=== PATIENT | female | born 1970 | race Caucasian/White ===

== ENCOUNTER → 2017-11-03 | Outpatient (CLI) | payer OTHER ==
--- NOTE | 2017-11-03 14:28 | WWHP ---
[facility] - HISTORY AND PHYSICAL DATE OF DICTATION: 11/03/2017 Please have a copy sent to Dr. Sharma. CHIEF COMPLAINT: The patient is here for her routine gynecologic exam and mammogram. HPI: This is a 47-year-old, G2, P2, with an LMP of 2003. She is status post tubal ligation. She is also status post endometrial ablation in 2003 and has been amenorrheic since then. She has been experiencing hot flashes, which seem to be improving compared to 1 year ago. PAST MEDICAL HISTORY: Hypertrophic parathyroid gland was removed in 2005 and she does have a history of hypercalcemia related to the parathyroid problem. Also history of recurrent kidney stones and osteoporosis. Dr. Sharma is her primary care physician. MEDICATIONS: 1. Alendronate 35 mg weekly. 2. Sodium tablet 35 mg daily. 3. Potassium citrate 1 daily. 4. Claritin p.r.n. 5. Singulair p.r.n. ALLERGIES: PENICILLIN AND NEOSPORIN. PAST SURGICAL HISTORY: Unchanged from the 09/09/2016 H and P. 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 SOCIAL HISTORY: She denies tobacco and drug use and has about 1 to 2 alcohol containing drinks per week. 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 FAMILY HISTORY: Father had renal cancer, diabetes and heart disease. Mother has rheumatoid arthritis. REVIEW OF SYSTEMS: Weight has been stable. She denies cardiac or GI problems. RESPIRATORY: She does have occasional seasonal allergies. PHYSICAL EXAM: Blood pressure 113/76, height 5 feet 1 inch, weight 107 pounds, BMI 20, temperature 98.2, pulse 97. This is a well-developed, well-nourished, white female, who is alert and oriented x3, in no acute distress. HEENT: Within normal limits. NECK: Supple without mass or thyromegaly. Chest and LUNGS: Clear to auscultation. HEART: Regular rate and rhythm. Breasts are without mass or discharge. Axillary exam is negative for adenopathy. Back negative for CVA tenderness. ABDOMEN: Soft, nontender, without palpable masses. Pelvic exam: Normal external genitalia. Cervix and vagina appear normal without significant atrophy. There is no evidence of prolapse. The uterus is mid position nongravid size and nontender. There are no palpable adnexal masses or tenderness. Rectal exam is negative for mass or tenderness and is negative for occult blood. Extremities nontender. IMPRESSION: 1. 47-year-old ashli menopausal female, who has been amenorrheic since her endometrial ablation. 2. Mild vasomotor symptoms which seem to be improving. 3. History of osteoporosis and she is on alendronate. PLAN: 1. Pap smear was deferred since she had a normal one less than 2 years ago. 2. Self breast examination was discussed. 3. Screening mammogram will be done today. 4. Osteoporosis management was discussed. She will follow up with Dr. Sharma regarding her osteoporosis medications. She will also discuss the amounts of calcium that she would like her to take in because of her history of parathyroid disease. 5. She will return in 1 year. MMODL / IJN: [id number] /
--- NOTE | 2017-11-04 09:30 | MM ---
Reason for exam: screening (asymptomatic). Last mammogram was performed 1 year and 2 months ago. Physical Findings: A clinical breast exam by your physician is recommended on an annual basis and results should be correlated with mammographic findings. MG Screening Mammo w CAD Bilateral CC and MLO view(s) were taken. Prior study comparison: September 09, 2016, bilateral MG screening mammo w CAD. August 07, 2015, bilateral MG screening mammo w CAD. The breast tissue is heterogeneously dense. This may lower the sensitivity of mammography. Finding: There are typically benign calcifications in the right breast. No significant changes in finding since September 09, 2016 and August 07, 2015. ASSESSMENT: Benign, BI-RAD 2 RECOMMENDATION: Routine screening mammogram of both breasts in 1 year.
== END | disposition home or self-care (01) ==
LOC: WWCWWP 12:58
PROVIDERS: ATTEND Obstetrics & Gynecology
DX: Z12.31 Encounter for screening mammogram for malignant neoplasm of breast (principal)
CPT/HCPCS: 77067

== ENCOUNTER → 2018-03-29 | Outpatient (CLI) | payer OTHER ==
--- NOTE | 2018-03-29 15:25 | US ---
EXAMINATION TYPE: US thyroid st tissue head/neck DATE OF EXAM: 03/29/2018 COMPARISON: NONE CLINICAL HISTORY: E21.0 Primary Hyperparathyroidism. GLAND SIZE: Right Lobe: 3.9 x 1.3 x 1.2 cm Overall Parenchyma: homogenous Left Lobe: 3.3 x 1.5 x 1.3 cm Overall Parenchyma: homogeneous Isthmus Thickness: 0.3 cm NODULES RIGHT: # of nodules measured on right: 1 1. 0.3 X 0.3 x 0.2 cm hypoechoic solid nodule at the upper, lateral pole with well-defined margins; . This nodule is wider than tall and shows no intranodular vascularity. Prior size: No previous LEFT: # of nodules measured on left: 1 1. 0.5 X 0.5 x 0.4 cm hypoechoic solid nodule at the mid, medial pole with well-defined margins; . This nodule is wider than tall and shows no intranodular vascularity. Prior size: No previous ISTHMUS: # of nodules measured in the isthmus: 0 Bilateral neck scanned, no evidence of lymphadenopathy. IMPRESSION: 1. Solid nodule within the posterior aspect of the mid left thyroid gland could relate to a parathyro id adenoma in the setting of hyperparathyroidism. Correlation with nuclear medicine parathyroid scan could be performed. 2. Incidentally identified 3 mm right thyroid nodule.
== END | disposition home or self-care (01) ==
LOC: RADUSWWP 14:42
PROVIDERS: ATTEND Internal Medicine Endocrinology, Diabetes & Metabolism
DX: E04.1 Nontoxic single thyroid nodule (principal)
CPT/HCPCS: 76536

== ENCOUNTER → 2018-04-14 | Outpatient (CLI) | payer OTHER ==
[2018-04-14 08:56] LABS: Albumin 4.6 g/dL (3.5-5.0); Potassium 5.4 mmol/L (3.5-5.1); Total Bilirubin 0.8 mg/dL (0.2-1.3); Total Protein 7.3 g/dL (6.3-8.2)
[2018-04-14 14:06] LABS: Calcium 24 Hour,Urine 54.4 mg/24 hr
[2018-04-14 16:32] LABS: Parathyroid Hormone Intact 65.6 pg/mL (14.0-72.0)
[2018-04-14 18:14] LABS: Vitamin D 25 Hydroxy 29.2 ng/mL (30.0-100.0)
== END | disposition home or self-care (01) ==
LOC: LABWHC1 08:18
PROVIDERS: ATTEND Internal Medicine Endocrinology, Diabetes & Metabolism
DX: E21.0 Primary hyperparathyroidism (principal); M81.0 Age-related osteoporosis without current pathological fracture
CPT/HCPCS: 36415; 80053; 81050; 82306; 82340; 83970; 84146; 84443

== ENCOUNTER → 2018-08-10 | Outpatient (CLI) | payer OTHER ==
[2018-08-10 19:15] LABS: Albumin 4.6 g/dL (3.80-4.90); Albumin/Globulin Ratio 2.19 (1.20-2.10); Anion Gap 8.6 mmol/L (4.00-12.00); Calcium 9.5 mg/dL (8.7-10.3); Carbon Dioxide 26.4 mmol/L (21.6-31.8); Globulin 2.1 g/dL (2.1-3.7); Potassium 4.8 mmol/L (3.5-5.5); Total Bilirubin 0.7 mg/dL (0.2-1.2); Total Protein 6.7 g/dL (6.2-8.2)
[2018-08-10 22:27] LABS: Parathyroid Hormone Intact 55.9 pg/mL (14.0-72.0)
== END | disposition home or self-care (01) ==
LOC: LABWHC1 08:59
PROVIDERS: ATTEND Internal Medicine Endocrinology, Diabetes & Metabolism
DX: E21.0 Primary hyperparathyroidism (principal); M81.0 Age-related osteoporosis without current pathological fracture
CPT/HCPCS: 36415; 80053; 82306; 83970; 84146; 84443

== ENCOUNTER → 2018-08-17 | Outpatient (CLI) | payer OTHER | LOC: LABWHC1 10:25 | PROVIDERS: ATTEND Internal Medicine Endocrinology, Diabetes & Metabolism | DX: M81.0 Age-related osteoporosis without current pathological fracture (principal) | CPT/HCPCS: 36415; 82523 ==

== ENCOUNTER → 2018-10-20 | Outpatient (CLI) | payer OTHER ==
[~2018-10-20] MED LIST: SODIUM CHLORIDE 0.9% 500 ML 500 ML in EMPTY BAG 1 BAG IV PRN; ZOLEDRONIC ACID 5 MG in SODIUM CHLORIDE 0.9% 100 ML IV NR
[2018-10-20 13:39] VITALS: BP 115/76; PULSE 88; RESP 16; TEMP 97.4
== END ==
LOC: PROCWHC3 13:32
PROVIDERS: ATTEND Internal Medicine Endocrinology, Diabetes & Metabolism
DX: M81.0 Age-related osteoporosis without current pathological fracture (principal)
CPT/HCPCS: 96365; J3489

== ENCOUNTER → 2019-01-12 | Outpatient (CLI) | payer OTHER ==
[2019-01-12 16:40] LABS: Vitamin D 25 Hydroxy 40.4 ng/mL (30.0-100.0)
[2019-01-12 16:43] LABS: Albumin 4.5 g/dL (3.80-4.90); Albumin/Globulin Ratio 2.25 (1.60-3.17); Anion Gap 9.4 mmol/L (4.00-12.00); Calcium 9.8 mg/dL (8.7-10.3); Carbon Dioxide 25.6 mmol/L (21.6-31.8); Potassium 4.8 mmol/L (3.5-5.5); Total Bilirubin 0.8 mg/dL (0.3-1.2); Total Protein 6.5 g/dL (6.2-8.2)
[2019-01-12 17:09] LABS: Parathyroid Hormone Intact 54.4 pg/mL (14.0-72.0)
== END | disposition home or self-care (01) ==
LOC: LABWHC1 09:13
PROVIDERS: ATTEND Internal Medicine Endocrinology, Diabetes & Metabolism
DX: M81.0 Age-related osteoporosis without current pathological fracture (principal); E55.9 Vitamin D deficiency, unspecified; E21.1 Secondary hyperparathyroidism, not elsewhere classified; R53.83 Other fatigue
CPT/HCPCS: 36415; 80053; 82306; 82523; 83970; 84443

== ENCOUNTER → 2020-04-24 | Outpatient (CLI) | payer OTHER ==
[2020-04-24 07:59] VITALS: BP 120/73; PULSE 72; RESP 16; TEMP 98.2
--- NOTE | 2020-04-24 08:47 | P.HPOB ---
History of Present Illness H&P Date: 04/24/20 Chief Complaint: The patient is here for her routine gynecologic exam and ma mmogram. This is a 49-year-old with an LMP of 2003. The patient is complaining of vaginal dryness with sexual intercourse and states [id number] lubricants have not been helpful. She has had hot flashes for years but these seem to be decreasing. She states she was tested with a blood tests that determined she was menopausal in the past. She denies any postmenopausal bleeding and has no other gynecologic complaints. Review of Systems She has lost about 7 pounds over the past 2-1/2 years. She denies respiratory, cardiac, or GI problems. Past Medical History Additional Past Medical History / Comment(s): Hypertrophic parathyroid gland removed in 2005 and history of hypercalcemia related to the parathyroid problem. History of recurrent kidney stones and osteoporosis. History of Any Multi-Drug Resistant Organisms: None Reported Past Surgical History: Tubal Ligation, Uterine Ablation Additional Past Surgical History / Comment(s): Endometrial ablation 2003. Parathyroid removed 2005. Multiple lithotripsies for kidney stones. 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 - Past Family History Father Family Medical History: Cancer, Diabetes Mellitus Additional Family Medical History / Comment(s): Renal cancer. Mother Family Medical History: Rheumatoid Arthritis (RA) Medications and Allergies Home Medications Medication Instructions Recorded Confirmed Type Calcium Carbonate [Calcium] 600 mg PO DAILY 10/20/18 04/24/20 History Cholecalciferol [Vitamin D3 (25 1,000 unit PO DAILY 04/24/20 04/24/20 History Mcg = 1000 Iu)] Montelukast [Singulair] 10 mg PO HS 04/24/20 04/24/20 History Potassium Citrate [Potassium 10 meq PO DAILY 04/24/20 04/24/20 History Citrate ER] Zoledronic Acid [Zometa] 0 mg SQ ONCE 04/24/20 04/24/20 History Allergies Allergy/AdvReac Type Severity Reaction Status Date / Time bacitracin Allergy Anaphylaxis Verified 04/24/20 07:48 [From Neosporin ([id number])] neomycin Allergy Anaphylaxis Verified 04/24/20 07:48 [From Neosporin ([id number])] Penicillins Allergy Anaphylaxis Verified 04/24/20 07:48 polymyxin B Allergy Anaphylaxis Verified 04/24/20 07:48 [From Neosporin ([id number])] Exam Vital Signs Temp Pulse Resp BP Pulse Ox 04/24/20 07:53 98.2 F 72 16 120/73 100 Intake and Output 04/23/20 04/24/20 04/24/20 22:59 06:59 14:59 Other: Weight 45.359 kg Height 5 feet 1 inch, weight 100 pounds, BMI 18.9. This is a well-developed well-nourished white female who is alert and oriented times 3 in no acute distress. HEENT: Within normal limits. NECK: Supple without mass or thyromegaly. CHEST AND LUNGS: Clear to auscultation. HEART: Regular rate and rhythm. BREASTS: Are without mass or discharge. AXILLARY EXAM: Negative for adenopathy. BACK: Negative for CVA tenderness. ABDOMEN: Soft, nontender, without palpable masses. PELVIC EXAM: Normal external genitalia with mild atrophy. Cervix and vagina appear normal mild atrophy. There is no unusual discharge. There is no evidence of prolapse. The uterus is midposition, nongravid size and nontender. There are no palpable adnexal masses or tenderness. RECTAL EXAM: negative for mass or tenderness and is negative for occult blood. EXTREMITIES: Nontender. IMPRESSION: 1. 49-year-old menopausal female with normal gynecologic exam. 2. Dyspareunia secondary to vaginal dryness from atrophy. 3. History of osteoporosis status post Fosamax use and is currently on Zometa. PLAN: 1. Pap smear was performed. 2. Self breast awareness was discussed with the patient. 3. Screening mammogram will be done today. 4. Trial of Premarin vaginal cream. The electronic prescription will be sent to [facility] in [place]. This will be for Premarin vaginal cream 1 g intravaginally 2 times weekly. 5. Osteoporosis management was discussed with the patient. She will follow up with her timekeeper supervisor for this as well as for her parathyroid issues, as she has done in the past. 6. She was advised to return in one year for her annual well woman exam.
--- NOTE | 2020-04-30 12:07 | MM ---
Reason for exam: screening (asymptomatic). Last mammogram was performed 2 years and 6 months ago. Physical Findings: A clinical breast exam by your physician is recommended on an annual basis and results should be correlated with mammographic findings. MG Screening Mammo w CAD Bilateral CC and MLO view(s) were taken. Prior study comparison: November 03, 2017, bilateral MG screening mammo w CAD. September 09, 2016, bilateral MG screening mammo w CAD. The breast tissue is heterogeneously dense. This may lower the sensitivity of mammography. There are benign appearing round calcifications bilaterally. There is no discrete abnormality. ASSESSMENT: Benign, BI-RAD 2 RECOMMENDATION: Routine screening mammogram of both breasts in 1 year.
--- NOTE | 2020-05-01 16:00 | P.PN ---
Progress Note - Text Progress Note Date: 05/01/20 OUTPATIENT FOLLOW-UP NOTE TEST(S)/RESULTS: test results from 04/24/2020 include negative Pap smear and benign mammogram. METHOD OF NOTIFICATION: the patient was notified by phone. PATIENT COMMENTS: the patient is happy to hear these results. The patient states the pharmacy did not have the prescription for Premarin vaginal cream. DIAGNOSIS: negative Pap smear and benign mammogram. DISCUSSION: The prescription for Premarin vaginal cream was resent to [facility] pharmacy in [place]. I have called the pharmacy and they did confirm that they did receive the electronic prescription. PLAN: the patient is to return in one year for her annual well woman exam.
== END | disposition home or self-care (01) ==
LOC: WWCWWP 07:37
PROVIDERS: ATTEND Obstetrics & Gynecology
DX: Z12.31 Encounter for screening mammogram for malignant neoplasm of breast (principal)
CPT/HCPCS: 77067

== ENCOUNTER → 2020-06-08 | Outpatient (CLI) | payer OTHER | END | disposition home or self-care (01) | LOC: RADBDWWP 08:59 | PROVIDERS: ATTEND Internal Medicine Endocrinology, Diabetes & Metabolism | DX: Z53.9 Procedure and treatment not carried out, unspecified reason (principal) ==

== ENCOUNTER → 2021-02-22 | Outpatient (CLI) | payer OTHER ==
[2021-02-23 07:36] LABS: African American GFR (CKD) 68.3 (60.0-200.0); Albumin 4.6 g/dL (3.80-4.90); Albumin/Globulin Ratio 1.7 (1.60-3.17); Anion Gap 13.5 mmol/L (4.00-12.00); BUN/Creat Ratio 14.55 Ratio (12.00-20.00); Calcium 9.6 mg/dL (8.7-10.3); Carbon Dioxide 21.5 mmol/L (21.6-31.8); Globulin 2.7 g/dL (1.6-3.3); Non-African American GFR(CKD) 58.9 (60.0-200.0); Potassium 4.8 mmol/L (3.5-5.5); Total Bilirubin 0.6 mg/dL (0.3-1.2); Total Protein 7.3 g/dL (6.2-8.2)
== END | disposition home or self-care (01) ==
LOC: LABWHC1 10:36
PROVIDERS: ATTEND Internal Medicine Endocrinology, Diabetes & Metabolism
DX: E21.1 Secondary hyperparathyroidism, not elsewhere classified (principal); M81.0 Age-related osteoporosis without current pathological fracture
CPT/HCPCS: 36415; 80053; 83970

== ENCOUNTER → 2021-03-19 | Outpatient (CLI) | payer OTHER ==
[2021-03-19 15:58] LABS: African American GFR (CKD) 76.6 (60.0-200.0); Albumin 4.5 g/dL (3.80-4.90); Albumin/Globulin Ratio 1.73 (1.60-3.17); Anion Gap 4.7 mmol/L (4.00-12.00); Calcium 9.3 mg/dL (8.7-10.3); Carbon Dioxide 27.3 mmol/L (21.6-31.8); Globulin 2.6 g/dL (1.6-3.3); Non-African American GFR(CKD) 66.1 (60.0-200.0); Potassium 4.7 mmol/L (3.5-5.5); Total Bilirubin 0.7 mg/dL (0.2-1.2); Total Protein 7.1 g/dL (6.2-8.2)
== END | disposition home or self-care (01) ==
LOC: LABWHC1 10:04
PROVIDERS: ATTEND Internal Medicine Endocrinology, Diabetes & Metabolism
DX: E21.1 Secondary hyperparathyroidism, not elsewhere classified (principal); M81.0 Age-related osteoporosis without current pathological fracture
CPT/HCPCS: 36415; 80053; 82306; 83970

== ENCOUNTER → 2022-04-21 | Outpatient (CLI) | payer OTHER ==
[2022-04-21 17:49] LABS: African American GFR (CKD) 71.7 (60.0-200.0); Albumin 4.8 g/dL (3.8-4.9); Albumin/Globulin Ratio 1.75 (1.60-3.17); Anion Gap 9.3 mmol/L (10.00-18.00); BUN/Creat Ratio 18.19 Ratio (12.00-20.00); Blood Urea Nitrogen 19.1 mg/dL (9.0-27.0); Calcium 9.8 mg/dL (8.7-10.3); Carbon Dioxide 26.7 mmol/L (20.0-27.5); Globulin 2.7 g/dL (1.6-3.3); Non-African American GFR(CKD) 61.9 (60.0-200.0); Potassium 4.9 mmol/L (3.5-5.5); Total Bilirubin 0.5 mg/dL (0.30-1.20); Total Protein 7.5 g/dL (6.2-8.2)
== END | disposition home or self-care (01) ==
LOC: LABWHC1 11:23
PROVIDERS: ATTEND Internal Medicine Endocrinology, Diabetes & Metabolism
DX: M81.0 Age-related osteoporosis without current pathological fracture (principal)
CPT/HCPCS: 36415; 80053

== ENCOUNTER → 2023-02-17 | Outpatient (CLI) | payer OTHER ==
[2023-02-17 11:14] VITALS: BP 119/79; PULSE 74; RESP 16; TEMP 97.9
--- NOTE | 2023-02-17 12:06 | P.HPOB ---
History of Present Illness H&P Date: 02/17/23 Chief Complaint: The patient is here for her routine gynecologic exam and ma mmogram. This is a 52-year-old with an LMP of 2003. The patient continues to have issues with vaginal dryness with sexual intercourse. She has been using [id number] lubricants without much help. She briefly tried Premarin vaginal cream and she did not feel it helped much so she discontinued it she is interested in trying this again. She is otherwise without gynecologic complaints. Review of Systems The patient has gained 14 pounds over the last 3 years. She denies respiratory, cardiac, or G.I. problems. Past Medical History Additional Past Medical History / Comment(s): Hypertrophic parathyroid gland removed in 2005 and history of hypercalcemia related to the parathyroid problem. History of recurrent kidney stones and osteoporosis(treated by farm equipment mechanic). HEART ABLATION for tachycardia arrhythmia 2019. History of Any Multi-Drug Resistant Organisms: None Reported Past Surgical History: Tubal Ligation, Uterine Ablation Additional Past Surgical History / Comment(s): Endometrial ablation 2003. Parathyroid removed 2005. Multiple lithotripsies for kidney stones. Colonoscopy 2021(next after 10yr). 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 - Past Family History Father Family Medical History: Cancer, Diabetes Mellitus Additional Family Medical History / Comment(s): Renal cancer. Mother Family Medical History: Rheumatoid Arthritis (RA) Medications and Allergies Home Medications Medication Instructions Recorded Confirmed Type Calcium Carbonate [Calcium] 600 mg PO DAILY 10/20/18 02/17/23 History Cholecalciferol [Vitamin D3 (25 1,000 unit PO DAILY 04/24/20 02/17/23 History Mcg = 1000 Iu)] Montelukast [Singulair] 10 mg PO HS 04/24/20 02/17/23 History traZODone HCL [Desyrel] 25 mg PO HS 02/17/23 02/17/23 History Allergies Allergy/AdvReac Type Severity Reaction Status Date / Time bacitracin Allergy Anaphylaxis Verified 02/17/23 11:09 [From Neosporin ([id number])] neomycin Allergy Anaphylaxis Verified 02/17/23 11:09 [From Neosporin ([id number])] Penicillins Allergy Anaphylaxis Verified 02/17/23 11:09 polymyxin B Allergy Anaphylaxis Verified 02/17/23 11:09 [From Neosporin ([id number])] Exam Vital Signs Temp Pulse Resp BP Pulse Ox 02/17/23 11:11 97.9 F 74 16 119/79 100 Intake and Output 02/16/23 02/17/23 02/17/23 22:59 06:59 14:59 Other: Weight 51.71 kg Height 5 foot 1 inch, weight 114 pounds, BMI 21.5. This is a well-developed well-nourished white female who is alert and oriented times 3 in no acute distress. HEENT: Within normal limits. NECK: Supple without mass or thyromegaly. CHEST AND LUNGS: Clear to auscultation. HEART: Regular rate and rhythm. BREASTS: Are without mass or discharge. AXILLARY EXAM: Negative for adenopathy. BACK: Negative for CVA tenderness. ABDOMEN: Soft, nontender, without palpable masses. PELVIC EXAM: Normal external genitalia with mild atrophy. Cervix and vagina ap pear normal with mild atrophy. There is no unusual discharge. There is no evidence of prolapse. The uterus is midposition, nongravid size and nontender. There are no palpable adnexal masses or tenderness. RECTAL EXAM: negative for mass or tenderness and is negative for occult blood. EXTREMITIES: Nontender. IMPRESSION: 1. 52-year-old menopausal female with normal gynecologic exam. 2. Dyspareunia secondary to vaginal dryness from atrophy. 3. History of osteoporosis status post Fosamax use in the past and is currently on Zometa injections twice a year. This is done through her farm equipment mechanic and she will continue to do bone density testing and treatment through her farm equipment mechanic. PLAN: 1. Pap smear cotest was performed. 2. Self breast awareness was discussed with the patient. We have also discussed symptoms associated with inflammatory breast cancer. 3. Screening mammogram was done today. 4. Osteoporosis management was discussed. She will continue to do this through her farm equipment mechanic. 5. Trial of Premarin vaginal cream. She will insert 1 g into the vagina every other day for 2 weeks, then changed to 2 times weekly. One sample tube was given to the patient with instructions. The electronic prescription will be sent to [facility] pharmacy in [place]. 6. She was advised to return in one year for her annual well woman exam and as needed.
--- NOTE | 2023-02-18 19:18 | MM ---
Reason for Exam: Screening (asymptomatic). Last mammogram was performed 2 year(s) and 9 month(s) ago. Patient History: Menarche at age 13. First Full-Term at age 23. Postmenopausal. Risk Values: Rosana 5 year model risk: 0.9%. NCI Lifetime model risk: 7.9%. Prior Study Comparison: 09/09/2016 Bilateral Screening Mammogram, [facility]. 11/03/2017 Bilateral Screening Mammogram, [facility]. 04/24/2020 Bilateral Screening Mammogram, [facility]. Tissue Density: The breast tissue is heterogeneously dense. This may lower the sensitivity of mammography. Findings: Analyzed By CAD. There is no suspicious group of microcalcifications or new suspicious mass in either breast. Overall Assessment: Negative, BI-RAD 1 Management: Screening Mammogram of both breasts in 1 year. . Patient should continue monthly self-breast exams. A clinical breast exam by your physician is recommended on an annual basis. This exam should not preclude additional follow-up of suspicious palpable abnormalities. Note on Rosana scores and lifetime risk: 1. A Rosana score greater than 3% is considered moderate risk. If this is the case, consider specialist referral to assess eligibility for a risk reducing agent. 2. If overall lifetime risk for the development of breast cancer is 20% or higher, the patient may qualify for future screening with alternating mammogram and breast MRI. Electronically signed and approved by: Jessica Hodge M.D. Radiologist
== END | disposition home or self-care (01) ==
LOC: RADMAMWWP 10:48
PROVIDERS: ATTEND Obstetrics & Gynecology
DX: Z12.31 Encounter for screening mammogram for malignant neoplasm of breast (principal); Z78.0 Asymptomatic menopausal state
CPT/HCPCS: 77063; 77067

== ENCOUNTER → 2023-12-30 | Outpatient (CLI) | payer OTHER ==
[2023-12-30 16:52] LABS: ALT 14 U/L (8-44); AST 29 U/L (13-35); Albumin 4.7 g/dL (3.8-4.9); Albumin/Globulin Ratio 1.81 Ratio (1.60-3.17); Alkaline Phosphatase 42 U/L (41-126); BUN/Creat Ratio 12.45 Ratio (12.00-20.00); Blood Urea Nitrogen 13.7 mg/dL (9.0-27.0); Calcium 9.7 mg/dL (8.7-10.3); Carbon Dioxide 24.8 mmol/L (21.6-31.8); Chloride 103 mmol/L (96-109); Globulin 2.6 g/dL (1.6-3.3); Glucose 85 mg/dL (70-110); Potassium 4.8 mmol/L (3.5-5.5); Sodium 139 mmol/L (135-145); Total Bilirubin 0.7 mg/dL (0.3-1.2); Total Protein 7.3 g/dL (6.2-8.2)
== END | disposition home or self-care (01) ==
LOC: LABWHC1 10:22
PROVIDERS: ATTEND Internal Medicine Endocrinology, Diabetes & Metabolism
DX: M81.0 Age-related osteoporosis without current pathological fracture (principal)
CPT/HCPCS: 36415; 80053; 82306; 82523; 83970; 84443

== ENCOUNTER → 2024-03-01 | Outpatient (CLI) | payer OTHER ==
[2024-03-01 11:26] VITALS: BP 125/76; PULSE 77; RESP 17; TEMP 97.9
--- NOTE | 2024-03-01 12:12 | P.HPOB ---
History of Present Illness H&P Date: 03/01/24 Chief Complaint: The patient is here for her routine gynecologic exam and ma mmogram. This is a 53-year-old with an LMP of 2003. The patient has been using estradiol vaginal cream for vaginal dryness with sexual intercourse. This has been helpful, but she has noticed some vulvar irritation after using the estrogen cream. She thinks it may be related to shaving in the area. She is otherwise without gynecologic complaints. Review of Systems The patient's weight has been stable over the last year. She denies respiratory, cardiac, or G.I. problems. Past Medical History Additional Past Medical History / Comment(s): Hypertrophic parathyroid gland removed in 2005 and history of hypercalcemia related to the parathyroid problem. History of recurrent kidney stones and osteoporosis(treated by end ocrinologist). HEART ABLATION for tachycardia arrhythmia 2019. History of Any Multi-Drug Resistant Organisms: None Reported Past Surgical History: Tubal Ligation, Uterine Ablation Additional Past Surgical History / Comment(s): Endometrial ablation 2003. Parathyroid removed 2005. Multiple lithotripsies for kidney stones. Colonoscopy 2021(next after 10yr). 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 - Past Family History Father Family Medical History: Cancer, Diabetes Mellitus Additional Family Medical History / Comment(s): Renal cancer. Mother Family Medical History: Rheumatoid Arthritis (RA) Medications and Allergies Home Medications Medication Instructions Recorded Confirmed Type Calcium Carbonate [Calcium] 600 mg PO DAILY 10/20/18 03/01/24 History Cholecalciferol [Vitamin D3 (25 1,000 unit PO DAILY 04/24/20 03/01/24 History Mcg = 1000 Iu)] traZODone HCL [Desyrel] 25 mg PO HS 02/17/23 03/01/24 History Estradiol Cream [Estrace Cream 1 gm VAGINAL DIRECTED #42.5 gm 02/24/23 03/01/24 Rx 0.01%] Allergies Allergy/AdvReac Type Severity Reaction Status Date / Time bacitracin Allergy Anaphylaxis Verified 03/01/24 11:24 [From Neosporin ([id number])] neomycin Allergy Anaphylaxis Verified 03/01/24 11:24 [From Neosporin ([id number])] Penicillins Allergy Anaphylaxis Verified 03/01/24 11:24 polymyxin B Allergy Anaphylaxis Verified 03/01/24 11:24 [From Neosporin ([id number])] Exam Vital Signs Temp Pulse Resp BP Pulse Ox 03/01/24 11:25 97.9 F 77 17 125/76 100 Intake and Output 02/29/24 03/01/24 03/01/24 22:59 06:59 14:59 Other: Weight 51.256 kg Height 5 feet 1 inch, weight 113 pounds, BMI 21.4. This is a well-developed well-nourished white female who is alert and oriented times 3 in no acute distress. HEENT: Within normal limits. NECK: Supple without mass or thyromegaly. CHEST AND LUNGS: Clear to auscultation. HEART: Regular rate and rhythm. BREASTS: Are without mass or discharge. AXILLARY EXAM: Negative for adenopathy. BACK: Negative for CVA tenderness. ABDOMEN: Soft, nontender, without palpable masses. PELVIC EXAM: Normal external genitalia with mild generalized erythema mostly on the inferior labia majora. There are no ulcerations or excoriation areas. Cervix and vagina appear normal with minimal atrophy. There is no unusual discharge. There is no evidence of prolapse. The uterus is midposition, nongravid size and nontender. There are no palpable adnexal masses or tenderness. RECTAL EXAM: Rectovaginal exam is negative for mass or tenderness and is negative for occult blood. EXTREMITIES: Nontender. IMPRESSION: 1. 53-year-old menopausal female with mild vulvitis which seems to get worse when she inserts estradiol vaginal cream. 2. History of osteoporosis on Prolia through her therapeutic dietitian. PLAN: 1. Pap smear was deferred since she had a negative Pap smear cotest on 02/17/2023. 2. Self breast awareness was discussed with the patient. We have also discussed symptoms associated with inflammatory breast cancer. 3. Screening mammogram was done today. 4. Osteoporosis management was discussed. She will continue using the Prolia treatment and is prescribed by her therapeutic dietitian. Because of her history of parathyroid issues she will also discuss with her therapeutic dietitian how much calcium she should take in. 5. Kenalog 0.1% cream twice daily as needed for vulvar irritation. I have also recommended that she avoid over washing with soap and she can also try to use a barrier type ointment such as petroleum jelly or A&E ointment to the vulva prior to inserting estradiol cream. The electronic prescription for the Kenalog cream will be sent to [facility] pharmacy in [place]. Prescription for the estradiol vaginal cream will also be sent to [facility] pharmacy in [place]. 6. She was advised to return in one year for her annual well woman exam and as needed.
--- NOTE | 2024-03-02 08:42 | MM ---
Reason for Exam: Screening (asymptomatic). Last mammogram was performed 1 year(s) and 1 month(s) ago. Patient History: Menarche at age 13. First Full-Term at age 23. Postmenopausal. Risk Values: Rosana 5 year model risk: 0.9%. NCI Lifetime model risk: 7.8%. Prior Study Comparison: 11/03/2017 Bilateral Screening Mammogram, [facility]. 04/24/2020 Bilateral Screening Mammogram, [facility]. 02/17/2023 Bilateral MG 3D screening mammo w/cad, [facility]. Tissue Density: The breasts are heterogeneously dense, which may obscure small masses. Findings: Analyzed By CAD. There is no suspicious group of microcalcifications or new suspicious mass in either breast. Benign-appearing calcifications. Overall Assessment: Benign, BI-RAD 2 Management: Screening Mammogram of both breasts in 1 year. . Patient should continue monthly self-breast exams. A clinical breast exam by your physician is recommended on an annual basis. This exam should not preclude additional follow-up of suspicious palpable abnormalities. Note on Rosana scores and lifetime risk: 1. A Rosana score greater than 3% is considered moderate risk. If this is the case, consider specialist referral to assess eligibility for a risk reducing agent. 2. If overall lifetime risk for the development of breast cancer is 20% or higher, the patient may qualify for future screening with alternating mammogram and breast MRI. Electronically signed and approved by: Yonatan Neves M.D. Radiologis
== END | disposition home or self-care (01) ==
LOC: RADMAMWWP 10:41
PROVIDERS: ATTEND Obstetrics & Gynecology
DX: Z12.31 Encounter for screening mammogram for malignant neoplasm of breast (principal); Z01.419 Encounter for gynecological examination (general) (routine) without abnormal findings
CPT/HCPCS: 77063; 77067

== ENCOUNTER → 2024-06-28 | Outpatient (CLI) | payer OTHER ==
--- NOTE | 2024-06-28 10:11 | BD ---
EXAMINATION TYPE: Axial Bone Density DATE OF EXAM: 06/28/2024 CLINICAL HISTORY: 54 years old Female. ICD-10 CODE: M81.0 AGE RELATED OSTEOPOROSIS Height: 61 Weight: 111.5 FRAX RISK QUESTIONS: Alcohol (3 or more units per day): no Family History (Parent hip fracture): no Glucocorticoids (More than 3mos): no (Ex: prednisone, prednisolone, methylprednisolone, dexamethasone, and hydrocortisone). History of Fracture in Adulthood: no Secondary Osteoporosis: 1. Type 1 Diabetes: no 2. Hyperthyroidism: no 3. Menopause before 45: yes 4. Malnutrition: no 5. Chronic liver disease: no Rheumatoid Arthritis: no Current Tobacco Use: no RISK FACTORS HISTORY OF: Surgery to Spine/Hip(right/left)/Wrist (right/left): no MEDICATIONS: Osteoporosis Medications: prolia How Lon 1/2 years ago had first shot EXAM MEASUREMENTS: Bone mineral densitometry was performed using the [employer] System. Bone mineral density as measured about the Lumbar spine is: ----- L1-L4(G/cm2): 0.958 T Score Values are as follows: ----- L1: -1.4 ----- L2: -1.8 ----- L3: -1.5 ----- L4: -2.7 ----- L1-L4: -1.9 Z Score Values are as follows: ----- L1: -0.3 ----- L2: -0.7 ----- L3: -0.4 ----- L4: -1.5 ----- L1-L4: -0.7 Bone mineral density : Baseline Bone mineral density about the R hip (g/cm2): 0.697 Bone mineral density about the L hip (g/cm2): 0.699 T Score values are as follows: -----R Neck: -2.7 -----L Neck: -2.4 -----R Total: -2.5 -----L Total: -2.4 Z Score values are as follows: -----R Neck: -1.5 -----L Neck: -1.1 -----R Total: -1.6 -----L Total: -1.5 Bone mineral density : baseline FRAX%s: The graph provided illustrates a 8.3% chance for a major osteoporotic fx and a 2.1% chance fo r the hips probability for fx in 10 years time. IMPRESSION: Osteopenia (T Score between -2.5 and -1). There is slightly increased risk of fracture and the patient may be considered for treatment. Re-Screen 2-5 years. NOTE: T-SCORE=SD OF THE YOUNG ADULT MEAN. [facility], , 06/28/2024 10:08 AM
== END | disposition home or self-care (01) ==
LOC: RADBDWWP 08:18
PROVIDERS: ATTEND Internal Medicine Endocrinology, Diabetes & Metabolism
DX: M81.0 Age-related osteoporosis without current pathological fracture
CPT/HCPCS: 77080

== ENCOUNTER → 2025-04-04 | Outpatient (CLI) | payer OTHER ==
[2025-04-04 09:37] VITALS: BP 132/79; PULSE 69; RESP 16; TEMP 98.3
--- NOTE | 2025-04-04 09:54 | P.HPOB ---
History of Present Illness H&P Date: 04/04/25 Chief Complaint: The patient is here for her routine gynecologic exam and ma mmogram. This is a 54-year-old G2, P2 with an LMP of 2003. The patient continues to use estrogen vaginal cream. She also uses Kenalog cream as needed. She does have occasions when she does have vulvar itching or irritation. She states the cream does help. She is otherwise without gynecologic complaints and denies any postmenopausal bleeding. Review of Systems The patient has gained 9 pounds over the last year. She denies respiratory, cardiac, or G.I. problems. Past Medical History Additional Past Medical History / Comment(s): Hypertrophic parathyroid gland removed in 2005 and history of hypercalcemia related to the parathyroid problem. History of recurrent kidney stones and osteoporosis(treated by fish net maker). HEART ABLATION for tachycardia arrhythmia 2019. Plantar fasciitis. 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 History of Any Multi-Drug Resistant Organisms: None Reported Past Surgical History: Tubal Ligation, Uterine Ablation Additional Past Surgical History / Comment(s): Endometrial ablation 2003. Parathyroid removed 2005. Multiple lithotripsies for kidney stones. Colonoscopy 2021(next after 10yr). 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 - Past Family History Father Family Medical History: Cancer, Diabetes Mellitus Additional Family Medical History / Comment(s): Renal cancer. Mother Family Medical History: Rheumatoid Arthritis (RA) Medications and Allergies Home Medications Medication Instructions Recorded Confirmed Type Calcium Carbonate [Calcium] 600 mg PO DAILY 10/20/18 03/01/24 History Cholecalciferol [Vitamin D3 (25 1,000 unit PO DAILY 04/24/20 03/01/24 History Mcg = 1000 Iu)] traZODone HCL [Desyrel] 25 mg PO HS 02/17/23 03/01/24 History Estradiol Cream [Estrace Cream 1 gm VAGINAL DIRECTED #42.5 gm 03/01/24 Rx 0.01%] Triamcinolone 0.1% Cream [Kenalog 1 applicatio TOPICAL BID PRN #30 gm 03/01/24 Rx 0.1% Cream] Denosumab [Prolia] 1 injection INJ DIRECTED 04/04/25 04/04/25 History Magnesium 400 mg PO DAILY 04/04/25 04/04/25 History Rosuvastatin [Crestor] 10 mg PO DAILY 04/04/25 04/04/25 History Allergies Allergy/AdvReac Type Severity Reaction Status Date / Time bacitracin Allergy Anaphylaxis Verified 04/04/25 09:30 [From Neosporin ([id number])] neomycin Allergy Anaphylaxis Verified 04/04/25 09:30 [From Neosporin ([id number])] Penicillins Allergy Anaphylaxis Verified 04/04/25 09:30 polymyxin B Allergy Anaphylaxis Verified 04/04/25 09:30 [From Neosporin ([id number])] Exam Vital Signs Temp Pulse Resp BP Pulse Ox 04/04/25 09:33 98.3 F 69 16 132/79 96 Intake and Output 04/03/25 04/04/25 04/04/25 22:59 06:59 14:59 Other: Weight 55.338 kg Height 5 feet 1 inch, weight 122 pounds, BMI 23.1. This is a well-developed well-nourished white female who is alert and oriented times 3 in no acute distress. HEENT: Within normal limits. NECK: Supple without mass or thyromegaly. CHEST AND LUNGS: Clear to auscultation. HEART: Regular rate and rhythm. BREASTS: Are without mass or discharge. AXILLARY EXAM: Negative for adenopathy. BACK: Negative for CVA tenderness. ABDOMEN: Soft, nontender, without palpable masses. PELVIC EXAM: External genitalia reveals generalized mild erythema involving the vulva, perineum, and perianal areas. There is no pallor noted. The area is well demarcated. There is no evidence of ulceration or excoriation, or focal lesions. Cervix and vagina appear normal. There is no unusual discharge. There is no evidence of prolapse. The uterus is midposition, nongravid size and nontender. There are no palpable adnexal masses or tenderness. RECTAL EXAM: Rectovaginal exam is negative for mass or tenderness and is negativ e for occult blood. EXTREMITIES: Nontender. IMPRESSION: 1. 54-year-old menopausal female with chronic mild vulvitis and perianal dermatitis. Her symptoms are controlled somewhat with estradiol cream and triamcinolone cream. 2. History of osteoporosis on Prolia managed by her fish net maker. PLAN: 1. Pap smear was deferred since she had a negative Pap smear cotest on 02/17/2023. 2. Self breast awareness was discussed with the patient. We have also discussed symptoms associated with inflammatory breast cancer. 3. Screening mammogram will be done today. 4. Osteoporosis management will be done through her fish net maker as she has done in the past. She had a bone density test on 06/28/2024 also done through her fish net maker. 5. Continue estradiol vaginal cream 1 g into the vagina 2 times a week and triamcinolone 0.1% cream twice daily as needed for vulvar and perianal irritation. Chronic prescription will be sent for these 2 medications to [facility] pharmacy in [place]. Recommended not to over wash and to avoid scratching and rubbing. I have also recommended that on the days that she is not using the triamcinolone cream, that she can use a small amount of petroleum jelly to the vulva as a protective layer. 6. She was advised to return in one year for her annual well woman exam as needed.
--- NOTE | 2025-04-04 10:58 | MM ---
Reason for Exam: Screening (asymptomatic). Last mammogram was performed 1 year(s) and 1 month(s) ago. Patient History: Menarche at age 13. First Full-Term at age 23. Postmenopausal. Risk Values: Rosana 5 year model risk: 1.0%. NCI Lifetime model risk: 7.7%. Prior Study Comparison: 04/24/2020 Bilateral Screening Mammogram, [facility]. 02/17/2023 Bilateral MG 3D screening mammo w/cad, [facility]. 03/01/2024 Bilateral MG 3D screening mammo w/cad, [facility]. Tissue Density: The breasts are heterogeneously dense, which may obscure small masses. Findings: Analyzed By CAD. There is no suspicious group of microcalcifications or new suspicious mass in either breast. Overall Assessment: Negative, BI-RAD 1 Management: Screening Mammogram of both breasts in 1 year. . Patient should continue monthly self-breast exams. A clinical breast exam by your physician is recommended on an annual basis. This exam should not preclude additional follow-up of suspicious palpable abnormalities. Note on Rosana scores and lifetime risk: 1. A Rosana score greater than 3% is considered moderate risk. If this is the case, consider specialist referral to assess eligibility for a risk reducing agent. 2. If overall lifetime risk for the development of breast cancer is 20% or higher, the patient may qualify for future screening with alternating mammogram and breast MRI. [facility], , 04/04/2025 10:55 AM. Electronically signed and approved by: Wilfredo Crane M.D. Radiologis
== END ==
LOC: WWCWWP 09:07
PROVIDERS: ATTEND Obstetrics & Gynecology
DX: Z01.419 Encounter for gynecological examination (general) (routine) without abnormal findings (principal); Z12.31 Encounter for screening mammogram for malignant neoplasm of breast; Z78.0 Asymptomatic menopausal state; N76.2 Acute vulvitis; L30.9 Dermatitis, unspecified; F12.90 Cannabis use, unspecified, uncomplicated; Z87.39 Personal history of other diseases of the musculoskeletal system and connective tissue; Z88.0 Allergy status to penicillin; Z88.1 Allergy status to other antibiotic agents
CPT/HCPCS: 77067